=== PATIENT | male | born 1975 | race African-American/Black ===

== ENCOUNTER 2020-08-12 03:32 | Inpatient (IN) ==
[2020-08-12] MEDS ORDERED: DEXAMETHASONE 4 MG/1 ML VIAL IV STA (04:15)
[2020-08-12] MEDS ORDERED: ONDANSETRON 4 MG/2 ML VIAL IV STA (04:15)
[2020-08-12] MEDS ORDERED: PIPERACILLIN/TAZOBACTAM 3,375 MG in SODIUM CHLORIDE 0.9% 100 ML IV STA (04:15)
[2020-08-12] MEDS ORDERED: FUROSEMIDE 40 MG/4 ML VIAL IV STA (04:15)
[2020-08-12 04:34] LABS: Basophils % 0.3 % (0.0-0.8); Hematocrit 43.1 VOL% (42.0-52.0); Hemoglobin 13.3 GM/DL (14.0-18.0); Immature Granulocytes % 0.5 %; Immature Granulocytes Absolute 0.04 #; Lymphocytes # 0.9 10*3/uL (1.4-4.0); Lymphocytes % 10.8 % (21.2-54.2); Mean Corpuscular HGB Conc 30.9 GM/DL (32-36); Mean Corpuscular Volume 84.3 FL (87-102); Mean Platelet Volume 8.3 FL (9.6-12.0); Monocytes % 7.8 % (1.7-12.7); Neutrophils % 80.6 % (38.7-73.9); Platelet Count 268 T/CUMM (130-400); Red Blood Count 5.11 MC/CUMM (3.8-5.5); Red Cell Distribution Width 12.8 % (9.3-17.3)
[2020-08-12 04:48] LABS: PT Patient Result 10.8 SECS (9.8-11.9)
[2020-08-12 04:51] LABS: ABG Base Excess 6.2 MMOL/L (-2.5-2.5); ABG HCO3 32.8 MMOL/L (20-26); ABG Oxygen Saturation 94.2 % (95-100); ABG PCO2 56.4 MM HG (35-48); ABG PH 7.383 (7.35-7.45); ABG PO2 72.6 MM HG (80-95); ABG TCO2 34.6 MMOL/L (23-27)
[2020-08-12] MEDS ORDERED: PIPERACILLIN/TAZOBACTAM 3,375 MG VIAL IV ONE (04:52)
[2020-08-12 05:00] LABS: Albumin 3.3 G/DL (3.4-5.0); Bilirubin,Total 0.4 MG/DL (0.2-1.0); Calcium 7.9 MG/DL (8.5-10.1); Ferritin 136.4 ng/ml (26-388); Osmolality,Calculated 267.4 MOS/KG (273-304); Total Protein 7.8 G/DL (6.4-8.3)
[2020-08-12 05:41] LABS: Bacteria,Urine Occasional /HPF (Few); Bilirubin,Urine Negative (Negative); Blood, Urine Small mg/dL (Negative); Glucose,Urine (UA) Negative (Negative); Ketones,Urine Negative (Negative); Mucus,Urine Occasional /LPF (Occasional); Nitrite,Urine Negative (Negative); Protein,Urine Negative; Squamous Epithelial Cell,Urine Occasional /HPF (0-10); Urine Appearance CLEAR (Clear); Urine Color Yellow (Yellow); Urine Specific Gravity 1.008 (1.001-1.035); Urine Urobilinogen < 2.0 EU/DL (0.2-1.0); WBC,Urine <1 /HPF (0-6)
[2020-08-12] MEDS ORDERED: ACETAMINOPHEN 325 MG TABLET PO PRN (07:46)
[2020-08-12] MEDS ORDERED: GLUCAGON 1 MG VIAL IM PRN (07:46)
[2020-08-12] MEDS ORDERED: DOCUSATE SODIUM 100 MG CAPSULE PO PRN (07:46)
[2020-08-12] MEDS ORDERED: DEXTROSE 50% 25 GM/50 ML VIAL IV PRN (07:46)
[2020-08-12] MEDS ORDERED: hydrALAZINE 20 MG/1 ML VIAL IV PRN (07:46)
[2020-08-12 08:53] LABS: Risk Ratio 5.3; Thyroid Stimulating Hormone 3.28 uIU/ml (0.358-3.74)
[2020-08-12] MEDS: DEXAMETHASONE 4 MG/1 ML VIAL IV SCH (09:28)
[2020-08-12] MEDS: AZITHROMYCIN INJ 500 MG in SODIUM CHLORIDE 0.9% 250 ML IV SCH (09:30)
[2020-08-12] MEDS: ZINC SULFATE 220 MG CAPSULE PO SCH (13:30)
[2020-08-12] MEDS: guaiFENesin/DM ER 600-30 MG TABLET PO SCH ×2 (13:30→20:53)
[2020-08-12] MEDS: ASCORBIC ACID 500 MG TABLET PO SCH ×2 (13:30→20:53)
[2020-08-12] MEDS ORDERED: REMDESIVIR 200 MG in SODIUM CHLORIDE 0.9% 210 ML IV ONE (14:30)
[2020-08-12] MEDS: amLODIPine 5 MG TABLET PO SCH (14:50)
[2020-08-12] MEDS: ENOXAPARIN 150 MG/ML SYRINGE SUBCUT SCH (16:30)
[2020-08-12] MEDS: INSULIN REGULAR 100 UNIT/ML SUBCUT SCH (16:50)
[2020-08-12] MEDS: guaiFENesin 200 MG/10 ML UDCUP PO PRN (17:50)
[2020-08-13 04:20] LABS: Basophils % 0.1 % (0.0-0.8); Hematocrit 41.6 VOL% (42.0-52.0); Hemoglobin 12.6 GM/DL (14.0-18.0); Immature Granulocytes % 0.4 %; Immature Granulocytes Absolute 0.03 #; Lymphocytes # 0.7 10*3/uL (1.4-4.0); Lymphocytes % 9.9 % (21.2-54.2); Mean Corpuscular HGB Conc 30.3 GM/DL (32-36); Mean Corpuscular Volume 85.4 FL (87-102); Mean Platelet Volume 8.4 FL (9.6-12.0); Monocytes % 9.3 % (1.7-12.7); Neutrophils % 80.3 % (38.7-73.9); Platelet Count 275 T/CUMM (130-400); Red Blood Count 4.87 MC/CUMM (3.8-5.5); Red Cell Distribution Width 12.6 % (9.3-17.3); White Blood Count 7.3 T/CUMM (4-12)
[2020-08-13 04:46] LABS: Calcium 7.7 MG/DL (8.5-10.1); Osmolality,Calculated 272.2 MOS/KG (273-304)
[2020-08-13 04:54] LABS: Ferritin 136.8 ng/ml (26-388)
[2020-08-13 05:22] LABS: PT Patient Result 10.9 SECS (9.8-11.9)
[2020-08-13] MEDS: INSULIN REGULAR 100 UNIT/ML SUBCUT SCH ×3 (08:01→17:03)
[2020-08-13] MEDS: guaiFENesin/DM ER 600-30 MG TABLET PO SCH ×2 (08:01→20:30)
[2020-08-13] MEDS: ASCORBIC ACID 500 MG TABLET PO SCH ×2 (08:01→20:30)
[2020-08-13] MEDS: ZINC SULFATE 220 MG CAPSULE PO SCH (08:01)
[2020-08-13] MEDS: amLODIPine 5 MG TABLET PO SCH (08:01)
[2020-08-13] MEDS: DEXAMETHASONE 4 MG/1 ML VIAL IV SCH (08:02)
[2020-08-13] MEDS: AZITHROMYCIN INJ 500 MG in SODIUM CHLORIDE 0.9% 250 ML IV SCH (10:34)
[2020-08-13] MEDS: REMDESIVIR 100 MG in SODIUM CHLORIDE 0.9% 230 ML IV SCH (12:19)
[2020-08-13] MEDS: ENOXAPARIN 150 MG/ML SYRINGE SUBCUT SCH (16:30)
[2020-08-14] MEDS: guaiFENesin 200 MG/10 ML UDCUP PO PRN ×3 (04:20→18:10)
[2020-08-14 04:44] LABS: PT Patient Result 10.9 SECS (9.8-11.9)
[2020-08-14 05:05] LABS: Calcium 8.1 MG/DL (8.5-10.1); Osmolality,Calculated 278.8 MOS/KG (273-304)
[2020-08-14 05:13] LABS: Basophils % 0.1 % (0.0-0.8); Hematocrit 41.8 VOL% (42.0-52.0); Hemoglobin 12.8 GM/DL (14.0-18.0); Immature Granulocytes % 0.7 %; Immature Granulocytes Absolute 0.06 #; Lymphocytes # 1.2 10*3/uL (1.4-4.0); Lymphocytes % 12.6 % (21.2-54.2); Mean Corpuscular HGB Conc 30.6 GM/DL (32-36); Mean Corpuscular Volume 85.5 FL (87-102); Mean Platelet Volume 8.7 FL (9.6-12.0); Monocytes % 7.7 % (1.7-12.7); Neutrophils % 78.9 % (38.7-73.9); Platelet Count 329 T/CUMM (130-400); Red Blood Count 4.89 MC/CUMM (3.8-5.5); Red Cell Distribution Width 12.4 % (9.3-17.3); White Blood Count 9.1 T/CUMM (4-12)
[2020-08-14 05:19] LABS: Ferritin 125.3 ng/ml (26-388)
[2020-08-14] MEDS: INSULIN REGULAR 100 UNIT/ML SUBCUT SCH ×3 (08:33→16:56)
[2020-08-14] MEDS: AZITHROMYCIN 250 MG TABLET PO SCH (08:34)
[2020-08-14] MEDS: ZINC SULFATE 220 MG CAPSULE PO SCH (08:34)
[2020-08-14] MEDS: amLODIPine 5 MG TABLET PO SCH (08:34)
[2020-08-14] MEDS: DEXAMETHASONE 4 MG/1 ML VIAL IV SCH (08:34)
[2020-08-14] MEDS: ASCORBIC ACID 500 MG TABLET PO SCH ×2 (08:34→21:16)
[2020-08-14] MEDS: guaiFENesin/DM ER 600-30 MG TABLET PO SCH ×2 (08:34→21:16)
[2020-08-14] MEDS: REMDESIVIR 100 MG in SODIUM CHLORIDE 0.9% 230 ML IV SCH (11:58)
[2020-08-14] MEDS: ENOXAPARIN 150 MG/ML SYRINGE SUBCUT SCH (16:45)
[2020-08-14] MEDS ORDERED: FUROSEMIDE 40 MG/4 ML VIAL IV ONE (20:00)
[2020-08-15 07:12] LABS: Basophils % 0.3 % (0.0-0.8); Eosinophils % 0.1 % (0.00-10.9); Hematocrit 43.3 VOL% (42.0-52.0); Hemoglobin 13.3 GM/DL (14.0-18.0); Immature Granulocytes % 1.3 %; Lymphocytes # 1.9 10*3/uL (1.4-4.0); Lymphocytes % 25.3 % (21.2-54.2); Mean Corpuscular HGB Conc 30.7 GM/DL (32-36); Mean Corpuscular Volume 84.1 FL (87-102); Monocytes % 12.1 % (1.7-12.7); Neutrophils % 60.9 % (38.7-73.9); Platelet Count 360 T/CUMM (130-400); Red Blood Count 5.15 MC/CUMM (3.8-5.5); Red Cell Distribution Width 12.5 % (9.3-17.3); White Blood Count 7.6 T/CUMM (4-12)
[2020-08-15 07:27] LABS: INR 1.1; PT Patient Result 11.4 SECS (9.8-11.9)
[2020-08-15 07:30] LABS: Calcium 8.3 MG/DL (8.5-10.1)
[2020-08-15 07:32] LABS: Ferritin 113.2 ng/ml (26-388)
[2020-08-15] MEDS: INSULIN REGULAR 100 UNIT/ML SUBCUT SCH ×3 (08:12→17:00)
[2020-08-15 09:00] LABS: Anisocytosis Slight; Band Neutrophils 7 % (0-10); Eosinophils 1 % (0-10); Lymphocytes 28 % (20-55); Metamyelocytes 1 %; Platelet Estimate Normal; Segmented Neutrophils 53 % (50-85); Smudge Cells Few; Total Cells Counted 100
[2020-08-15] MEDS: guaiFENesin/DM ER 600-30 MG TABLET PO SCH ×2 (09:48→21:15)
[2020-08-15] MEDS: amLODIPine 5 MG TABLET PO SCH (09:48)
[2020-08-15] MEDS: ASCORBIC ACID 500 MG TABLET PO SCH ×2 (09:49→21:15)
[2020-08-15] MEDS: ZINC SULFATE 220 MG CAPSULE PO SCH (09:49)
[2020-08-15] MEDS: DEXAMETHASONE 4 MG/1 ML VIAL IV SCH (09:49)
[2020-08-15] MEDS: REMDESIVIR 100 MG in SODIUM CHLORIDE 0.9% 230 ML IV SCH (09:50)
[2020-08-15] MEDS: AZITHROMYCIN 250 MG TABLET PO SCH (11:22)
[2020-08-15] MEDS: ENOXAPARIN 150 MG/ML SYRINGE SUBCUT SCH (15:08)
[2020-08-16] MEDS: INSULIN REGULAR 100 UNIT/ML SUBCUT SCH ×3 (08:49→17:29)
[2020-08-16 08:55] LABS: Basophils % 0.1 % (0.0-0.8); Eosinophils % 0.1 % (0.00-10.9); Hematocrit 42.1 VOL% (42.0-52.0); Immature Granulocytes % 1.9 %; Immature Granulocytes Absolute 0.15 #; Lymphocytes # 2.2 10*3/uL (1.4-4.0); Lymphocytes % 27.9 % (21.2-54.2); Mean Corpuscular HGB Conc 30.9 GM/DL (32-36); Mean Corpuscular Volume 83.5 FL (87-102); Mean Platelet Volume 8.1 FL (9.6-12.0); Monocytes % 11.7 % (1.7-12.7); Neutrophils % 58.3 % (38.7-73.9); Platelet Count 392 T/CUMM (130-400); Red Blood Count 5.04 MC/CUMM (3.8-5.5); Red Cell Distribution Width 12.6 % (9.3-17.3); White Blood Count 7.9 T/CUMM (4-12)
[2020-08-16 09:05] LABS: INR 1.1; PT Patient Result 11.3 SECS (9.8-11.9)
[2020-08-16 09:14] LABS: Calcium 8.5 MG/DL (8.5-10.1)
[2020-08-16 09:17] LABS: Ferritin 103.1 ng/ml (26-388)
[2020-08-16 09:18] LABS: Band Neutrophils 1 % (0-10); Eosinophils 1 % (0-10); Hypochromasia 1+; Lymphocytes 18 % (20-55); Microcytosis 1+; Platelet Estimate Adequate; Segmented Neutrophils 69 % (50-85); Total Cells Counted 100
[2020-08-16] MEDS: DEXAMETHASONE 4 MG/1 ML VIAL IV SCH (09:24)
[2020-08-16] MEDS: ASCORBIC ACID 500 MG TABLET PO SCH ×2 (09:24→21:27)
[2020-08-16] MEDS: REMDESIVIR 100 MG in SODIUM CHLORIDE 0.9% 230 ML IV SCH (09:24)
[2020-08-16] MEDS: AZITHROMYCIN 250 MG TABLET PO SCH (09:24)
[2020-08-16] MEDS: ZINC SULFATE 220 MG CAPSULE PO SCH (09:24)
[2020-08-16] MEDS: amLODIPine 5 MG TABLET PO SCH (09:24)
[2020-08-16] MEDS: guaiFENesin/DM ER 600-30 MG TABLET PO SCH ×2 (09:24→21:27)
[2020-08-16] MEDS: ENOXAPARIN 150 MG/ML SYRINGE SUBCUT SCH (17:29)
[2020-08-17 07:19] LABS: Basophils % 0.2 % (0.0-0.8); Eosinophils % 0.1 % (0.00-10.9); Hematocrit 43.1 VOL% (42.0-52.0); Hemoglobin 13.4 GM/DL (14.0-18.0); Immature Granulocytes % 1.7 %; Immature Granulocytes Absolute 0.17 #; Lymphocytes # 2.3 10*3/uL (1.4-4.0); Lymphocytes % 23.9 % (21.2-54.2); Mean Corpuscular HGB Conc 31.1 GM/DL (32-36); Mean Corpuscular Volume 83.5 FL (87-102); Mean Platelet Volume 8.2 FL (9.6-12.0); Monocytes % 10.4 % (1.7-12.7); Neutrophils % 63.7 % (38.7-73.9); Platelet Count 423 T/CUMM (130-400); Red Blood Count 5.16 MC/CUMM (3.8-5.5); Red Cell Distribution Width 12.6 % (9.3-17.3); White Blood Count 9.8 T/CUMM (4-12)
[2020-08-17 07:45] LABS: Eosinophils 1 % (0-10); Hypochromasia 1+; Lymphocytes 18 % (20-55); Microcytosis 1+; Platelet Estimate Adequate; Segmented Neutrophils 72 % (50-85); Total Cells Counted 100
[2020-08-17 07:47] LABS: Calcium 8.6 MG/DL (8.5-10.1); Osmolality,Calculated 273.8 MOS/KG (273-304)
[2020-08-17] MEDS: AZITHROMYCIN 250 MG TABLET PO SCH (09:10)
[2020-08-17] MEDS: DEXAMETHASONE 4 MG/1 ML VIAL IV SCH (09:10)
[2020-08-17] MEDS: ZINC SULFATE 220 MG CAPSULE PO SCH (09:10)
[2020-08-17] MEDS: amLODIPine 5 MG TABLET PO SCH (09:10)
[2020-08-17] MEDS: INSULIN REGULAR 100 UNIT/ML SUBCUT SCH ×2 (09:10→12:14)
[2020-08-17] MEDS: ASCORBIC ACID 500 MG TABLET PO SCH (09:10)
[2020-08-17] MEDS: guaiFENesin/DM ER 600-30 MG TABLET PO SCH (09:10)
[2020-08-17 11:24] VITALS: BP 124/71
== END 2020-08-17 14:51 | disposition home or self-care (01) | DRG 177 ==
LOC: N.ED 03:32 → N.EDINP 07:46 → N.CC 15:43 → N.2E 08-13 19:55
PROVIDERS: ADMIT Internal Medicine; ATTEND Internal Medicine